=== PATIENT | male | born 1980 | race Caucasian/White ===

== ENCOUNTER 2017-12-22 02:20 | Emergency (ER) | payer OTHER ==
[~2017-12-22 02:20] MED LIST: IBUP600T22 PO
--- NOTE | 2017-12-22 02:23 | ER Report ---
History and Physical Time Seen By MD: 02:23 HPI/ROS CHIEF COMPLAINT: Anxiety/panic attack HISTORY OF PRESENT ILLNESS: 37-year-old male presents ambulatory to the ER complaining of anxiety attack, which woke him up around 1.. His was able to calm him down. She returned to bed, but he began to get worked back up again. He came to the ER having a panic attack. He notes some chest tightness. He is concerned he may be having a heart attack. Patient states she is currently going through counseling. He's never been on medication for anxiety before. REVIEW OF SYSTEMS: Respiratory: No cough, no dyspnea. Cardiovascular: No chest pain, no palpitations. Gastrointestinal: No vomiting, no abdominal pain. Musculoskeletal: No back pain. Allergies: Coded Allergies: No Known Drug Allergies (Unverified , 12/22/17) Home Meds Active Scripts Lorazepam (ATIVAN) 1 Mg Tablet, 1 MG PO Q6-8H Y for ANXIETY, #15 Prov:AALIYAH REYES Maude DO 12/22/17 Discontinued Reported Medications Ibuprofen (IBUPROFEN) 600 Mg Tablet, 3 TAB PO PRN, TAB 01/27/16 Reviewed Nurses Notes: Yes Old Medical Records Reviewed: Yes Hx Smoking: Yes Smoking Status: Former Smoker Hx Substance Use Disorder: Yes (occ marijuana) Hx Alcohol Use: Yes (hx of abuse) Constitutional Vital Sign - Last 24 Hours 12/22/17 02:27 Temp 98.0 Pulse 90 Resp 24 B/P (MAP) 156/107 Pulse Ox 98 O2 Delivery Room Air Physical Exam General Appearance: The patient is alert, has no immediate need for airway protection and no current signs of toxicity. HEENT: Pupils equal and round no injection. Oropharynx without redness or exudate, mucous membranes are moist Respiratory: Chest is non tender, lungs are clear to auscultation. Cardiac: regular rate and rhythm Gastrointestinal: Abdomen is soft and non tender, no masses, bowel sounds normal. Musculoskeletal: Neck: Neck is supple and non tender. Extremities have full range of motion and are non tender. Skin: No rashes or lesions. DIFFERENTIAL DIAGNOSIS: After history and physical exam differential diagnosis was considered for anxiety, chest pain, panic attack Medical Decision Making EKG/Imaging EKG Interpretation 12 lead EKG: Rhythm: normal sinus rhythm [place]: normal QRS: normal ST segments: normal ED Course/Re-evaluation ED Course Patient was admitted to an examination room. H&P was done. The differential diagnoses was considered. On clinical examination, patient appears to be of an acute panic attack. An EKG was performed to rule out acute ischemia as a source of his chest tightness. His EKG was normal. Patient we medicated with Ativan 1 mg 2. He drove himself here with further medication at home by himself. Prescription was provided for additional Ativan. He's can follow-up with the [place]. He denies suicidal ideation. Decision to Disposition Date: Dec 22, 2017 Decision to Disposition Time: 02:40 Depart Departure Latest Vital Signs Vital Signs Date Time Temp Pulse Resp B/P (MAP) Pulse Ox O2 Delivery O2 Flow Rate FiO2 12/22/17 02:27 98.0 90 24 156/107 98 Room Air Impression: Primary Impression: Anxiety Additional Impression: Panic attack Condition: Improved Disposition: HOME OR SELF-CARE New Scripts Lorazepam (ATIVAN) 1 Mg Tablet 1 MG PO Q6-8H Y for ANXIETY, #15 Prov: AALIYAH REYES DO 12/22/17 Patient Instructions: Anxiety (ED), Panic Attack (ED) Additional Instructions: Take Ativan 1 mg if no effect take a 2nd one in 1 hour Follow-up with the [place] Problem Qualifiers AALIYAH REYES DO Dec 22, 2017 02:23
[2017-12-22 02:27] VITALS: BP 156/107
[2017-12-22] MEDS ORDERED: LORazepam 1 MG TAB PO ONE (02:35)
[2017-12-22] MEDS ORDERED: LORA-1456 PO (02:42)
--- NOTE | 2017-12-22 02:45 | EKG ---
FACILITY: [facility] PATIENT NAME: RUDI CARABALLO : [id number] MR: [id number] V: [id number] EXAM DATE: ORDERING PHYSICIAN: AALIYAH REYES TECHNOLOGIST: Mika Blanco Reason : Blood Pressure : / mmHG Vent. Rate : 084 BPM Atrial Rate : 084 BPM P-R Int : 174 ms QRS Dur : 096 ms QT Int : 350 ms P-R-T Axes : 045 074 032 degrees QTc Int : 413 ms Normal sinus rhythm Normal ECG No previous ECGs available Confirmed by GRECIA GALLO ([id number]) on 12/22/2017 6:44:59 AM Referred By: Confirmed By:GRECIA GALLO
== END 2017-12-22 02:53 | disposition home or self-care (01) ==
LOC: ER 02:23
DX: F41.0 Panic disorder [episodic paroxysmal anxiety] (principal)
CPT/HCPCS: 93005; 99282